=== PATIENT | female | born 2000 | race Two or more races ===

== ENCOUNTER 2018-04-19 16:48 | Emergency (ER) | payer OTHER ==
[~2018-04-19] VITALS: Ht 147.3 cm; Wt 68.0 kg
[2018-04-19 17:10] VITALS: BP 142/89
[2018-04-19 17:56] LABS: BASOPHILS % (AUTO) 2.2 % (0.0-2.0); EOSINOPHILS % (AUTO) 2.3 % (0.0-3.0); HEMATOCRIT 31.8 % (37.0-47.0); HEMOGLOBIN 9.5 G/DL (12.0-16.0); LYMPHOCYTES % (AUTO) 31.6 % (20.0-45.0); MEAN CORPUSCULAR VOLUME 72 FL (80-99); MONOCYTES % (AUTO) 7.6 % (1.0-10.0); NEUTROPHILS % (AUTO) 56.3 % (45.0-75.0); PLATELET COUNT 284 K/UL (150-450); RED BLOOD COUNT 4.42 M/UL (4.20-5.40); RED CELL DISTRIBUTION WIDTH 14.2 % (11.6-14.8); WHITE BLOOD COUNT 7.5 K/UL (4.8-10.8)
[2018-04-19 17:58] LABS: APPEARANCE,URINE SLIGHTLY CLOUDY; BILIRUBIN, URINE NEGATIVE (NEGATIVE); COLOR,URINE PALE YELLOW; GLUCOSE, URINE (UA) NEGATIVE (NEGATIVE); KETONES,URINE NEGATIVE (NEGATIVE); LEUKOCYTE ESTERASE ,URINE 3+ (NEGATIVE); NITRITE,URINE NEGATIVE (NEGATIVE); PH,URINE 6 (4.5-8.0); PROTEIN,URINE NEGATIVE (NEGATIVE); UROBILINOGEN,URINE NORMAL MG/DL (0.0-1.0)
[2018-04-19] MEDS ORDERED: Isovue-300 100ml vial INJ PRN (18:00)
[2018-04-19 18:13] LABS: ANION GAP 14 mmol/L (5-15); BLOOD UREA NITROGEN 8 mg/dL (7-18); CALCIUM 9.7 MG/DL (8.5-10.1); CARBON DIOXIDE 22 MMOL/L (21-32); CHLORIDE 103 MMOL/L (98-107); CREATININE 0.6 MG/DL (0.55-1.30); POTASSIUM 3.9 MMOL/L (3.5-5.1); SODIUM 139 MMOL/L (136-145)
[2018-04-19 18:18] LABS: ALANINE AMINOTRANSFERASE 25 U/L (12-78); ALBUMIN 4.6 G/DL (3.4-5.0); ALBUMIN/GLOBULIN RATIO 0.9 (1.0-2.7); ALKALINE PHOSPHATASE 96 U/L (46-116); ASPARTATE AMINO TRANSFERASE 38 U/L (15-37); BILIRUBIN,TOTAL 0.4 MG/DL (0.2-1.0)
[2018-04-19 19:05] VITALS: BP 139/83
--- NOTE | 2018-04-19 19:11 | Emergency Room Report ---
History of Present Illness General Chief Complaint: General Complaint Source: Patient, Family Member Present Illness HPI The patient states that about a year ago she went to an CLINICAL MOLECULAR GENETICIST physician and was found to have a mass in her pelvis. She underwent ultrasound and then MRI and was told she had a 9 cm ovarian cyst. She states that for the past year her abdomen has grown larger. She denies pain in her abdomen although she states that it does feel full. She had been put on control pills by the initial CLINICAL MOLECULAR GENETICIST physician but she did not take these regularly. She states she is also placed on iron for anemia. She states that her abdomen has become very large. She went to an CLINICAL MOLECULAR GENETICIST physician today to undergo a physical and although her insurance was declined by the clinic, the CLINICAL MOLECULAR GENETICIST quickly evaluated her and was very concerned and instructed her to come to the emergency department. She denies recent illness. She denies nausea or vomiting. She states that she gets full easily when she eats. She denies dysuria or hematuria. She has regular menses that last about 7 days. She denies night sweats. She has no other complaints. Allergies: Coded Allergies: No Known Allergies (Unverified , 04/19/18) Patient History Past Medical History: see triage record, other - ovarian cyst 9cm Social History: Denies: smoking, alcohol use, drug use Last Menstrual Period: 04/12/18 Reviewed Nursing Documentation: PMH: Agreed; PSxH: Agreed Nursing Documentation-PMH Past Medical History: No History, Except For History Of Psychiatric Problem: No - ovarian cyst Review of Systems All Other Systems: negative except mentioned in HPI Physical Exam Vital Signs Date Time Temp Pulse Resp B/P (MAP) Pulse Ox O2 Delivery O2 Flow Rate FiO2 04/19/18 17:02 98.4 112 18 142/89 100 Room Air Sp02 EP Interpretation: reviewed, normal General Appearance: no apparent distress, alert, GCS 15, non-toxic Head: normocephalic, atraumatic Eyes: bilateral eye normal inspection, bilateral eye PERRL ENT: hearing grossly normal, normal pharynx, no angioedema, normal voice Neck: full range of motion, supple/symm/no masses Respiratory: chest non-tender, lungs clear, normal breath sounds, no respiratory distress, no retraction, no accessory muscle use, speaking full sentences Cardiovascular #1: regular rate, rhythm, no edema Gastrointestinal: normal bowel sounds, non tender, soft, no guarding, no rebound, distended - Distended abdomen as large as 9month , soft. Rectal: deferred Musculoskeletal: back normal, gait/station normal, normal range of motion, non- tender Neurologic: alert, oriented x3, responsive, motor strength/tone normal, sensory intact, speech normal Psychiatric: judgement/insight normal, memory normal, mood/affect normal, no suicidal/homicidal ideation Skin: normal color, no rash, warm/dry, well hydrated Medical Decision Making Diagnostic Impression: Primary Impression: Ovarian mass, right Additional Impression: UTI (urinary tract infection) ER Course This patient is found to have a massive cystic mass lesion in the pelvis measuring about 34 cm. I discussed the case with the on-call CLINICAL MOLECULAR GENETICIST Dr. De La Rosa. The tenderness years states that this is likely benign however this will need to be addressed with removal and pathology as soon as possible. Dr. Carli ahuja will see this patient Sunday morning (3 days) for further evaluation. I will also treat the patient with a course of antibiotics given the findings on urinalysis, although, I suspect the UA is contaminated. Overall, the patient is well-appearing without abdominal pain or tenderness. She is given close return precautions and follow-up instructions. Please note that this Emergency Department Report was dictated using [employer] software, occasionally this can lead to erroneous entry secondary to interpretation by the dictation equipment. Laboratory Tests Test 04/19/18 17:40 White Blood Count 7.5 K/UL (4.8-10.8) Red Blood Count 4.42 M/UL (4.20-5.40) Hemoglobin 9.5 G/DL (12.0-16.0) L Hematocrit 31.8 % (37.0-47.0) L Mean Corpuscular Volume 72 FL (80-99) L Mean Corpuscular Hemoglobin 21.4 PG (27.0-31.0) L Mean Corpuscular Hemoglobin Concent 29.8 G/DL (32.0-36.0) L Red Cell Distribution Width 14.2 % (11.6-14.8) Platelet Count 284 K/UL (150-450) Mean Platelet Volume 8.5 FL (6.5-10.1) Neutrophils (%) (Auto) 56.3 % (45.0-75.0) Lymphocytes (%) (Auto) 31.6 % (20.0-45.0) Monocytes (%) (Auto) 7.6 % (1.0-10.0) Eosinophils (%) (Auto) 2.3 % (0.0-3.0) Basophils (%) (Auto) 2.2 % (0.0-2.0) H Urine Color Pale yellow Urine Appearance Slightly cloudy Urine pH 6 (4.5-8.0) Urine Specific [place] 1.010 (1.005-1.035) Urine Protein Negative (NEGATIVE) Urine Glucose (UA) Negative (NEGATIVE) Urine Ketones Negative (NEGATIVE) Urine Blood 1+ (NEGATIVE) H Urine Nitrite Negative (NEGATIVE) Urine Bilirubin Negative (NEGATIVE) Urine Urobilinogen Normal MG/DL (0.0-1.0) Urine Leukocyte Esterase 3+ (NEGATIVE) H Urine RBC 2-4 /HPF (0 - 2) H Urine WBC 15-20 /HPF (0 - 2) H Urine Squamous Epithelial Cells Moderate /LPF (NONE/OCC) H Urine Bacteria Few /HPF (NONE) Urine HCG, Qualitative Negative (NEGATIVE) Sodium Level 139 MMOL/L (136-145) Potassium Level 3.9 MMOL/L (3.5-5.1) Chloride Level 103 MMOL/L (98-107) Carbon Dioxide Level 22 MMOL/L (21-32) Anion Gap 14 mmol/L (5-15) Blood Urea Nitrogen 8 mg/dL (7-18) Creatinine 0.6 MG/DL (0.55-1.30) Estimate Glomerular Filtration Rate > 60 mL/min (>60) Glucose Level 96 MG/DL (74-106) Calcium Level 9.7 MG/DL (8.5-10.1) Total Bilirubin 0.4 MG/DL (0.2-1.0) Aspartate Amino Transferase (AST) 38 U/L (15-37) H Alanine Aminotransferase (ALT) 25 U/L (12-78) Alkaline Phosphatase 96 U/L (46-116) Total Protein 9.5 G/DL (6.4-8.2) H Albumin 4.6 G/DL (3.4-5.0) Globulin 4.9 g/dL Albumin/Globulin Ratio 0.9 (1.0-2.7) L Lipase 229 U/L (73-393) CT/MRI/US Diagnostic Results CT/MRI/US Diagnostic Results : Imaging Test Ordered: US abdomen, CT abd/pelvis Impression Please see official report. Massive, predominantly cystic mass lesion with additional internal multilocular components. Measures at least 34 cm. Displaced and compressed intra-abdominal and pelvic structures. Last Vital Signs Date Time Temp Pulse Resp B/P (MAP) Pulse Ox O2 Delivery O2 Flow Rate FiO2 04/19/18 17:10 112 18 Room Air 04/19/18 17:10 98.4 142/89 100 Disposition: HOME, SELF-CARE Condition: Improved Scripts No Active Prescriptions or Reported Meds Eden Olsen DO Apr 19, 2018 19:11
--- NOTE | 2018-04-19 19:52 | Diagnostic Imaging Report ---
EXAM: CT Abdomen and Pelvis With Intravenous Contrast CLINICAL HISTORY: MASS TECHNIQUE: Axial computed tomography images of the abdomen and pelvis with intravenous contrast. CTDI is 736.10 mGy and DLP is 743 mGy-cm. One or more of the following dose reduction techniques were used: automated exposure control, adjustment of the mA and/or kV according to patient size, use of iterative reconstruction technique. COMPARISON: No relevant prior studies available. FINDINGS: Lung bases: Unremarkable. ABDOMEN: Liver: Unremarkable. Gallbladder and bile ducts: No calcified stones. No ductal dilation. Pancreas: Unremarkable. Spleen: Unremarkable. Adrenals: Unremarkable. Kidneys and ureters: Fullness of the renal collecting systems. Stomach and bowel: Bowel is displaced and compressed. No german mural thickening. Nonobstructive bowel gas pattern. PELVIS: Appendix: No findings to suggest acute appendicitis. Bladder: Bladder is decompressed. Reproductive: Large and heterogeneous appearing left the adnexa. ABDOMEN and PELVIS: Intraperitoneal space: Massive, predominately cystic mass lesion with additional internal multilocular components, measures at least 34 cm. Displaced and compressed intra-abdominal and pelvic structures Bones/joints: No acute fracture. Soft tissues: Unremarkable. Vasculature: Unremarkable. No abdominal aortic aneurysm. Lymph nodes: No and bulky lymph nodes. IMPRESSION: Massive, predominately cystic mass lesion with additional internal multilocular components, measures at least 34 cm.
--- NOTE | 2018-04-19 20:22 | Diagnostic Imaging Report ---
EXAM: US Abdomen Complete CLINICAL HISTORY: ABD PAIN TECHNIQUE: Real-time ultrasound of the abdomen (complete) with image documentation. COMPARISON: CT 04/19/18 FINDINGS: Liver: No discrete mass demonstrated. Gallbladder: No gallstones or biliary ductal dilatation. Common bile duct: Unremarkable as visualized. Pancreas: Unremarkable as visualized Kidneys: Fullness of the renal collecting systems. Spleen: No splenomegaly. Aorta: Unremarkable. Inferior vena cava: Unremarkable. Other findings: Massive, predominately cystic mass lesion with intramural loculated components as seen on CT. IMPRESSION: Massive, predominately cystic mass lesion in the abdomen - pelvis with intramural loculated components as seen on CT.
[2018-04-19 21:00] VITALS: BP 135/80
[2018-04-19] MEDS ORDERED: NITROFURANTOIN100 M2 ORAL (21:23)
[2018-04-19 21:25] VITALS: BP 135/80
== END 2018-04-19 21:25 | disposition home or self-care (01) ==
LOC: EMR 17:24
DX: R19.09 Other intra-abdominal and pelvic swelling, mass and lump (principal); N39.0 Urinary tract infection, site not specified
CPT/HCPCS: 36415; 74177; 76700; 80053; 81003; 81025; 83690; 85025; 87086; 99284; Q9967